=== PATIENT | female | born 2000 | race Asian ===

== ENCOUNTER 2021-12-06 01:29 | Emergency (ER) | payer BC, MEDICAID ==
[~2021-12-06] VITALS: Ht 172.7 cm; Wt 69.0 kg
[2021-12-06] MEDS ORDERED: DOXY100T2 MT (03:37)
[2021-12-06] MEDS ORDERED: TOPUD MT (03:37)
[2021-12-06 03:57] VITALS: BP 114/65
== END 2021-12-06 03:59 | disposition home or self-care (01) ==
LOC: ER 01:29
DX: J18.9 Pneumonia, unspecified organism (principal)
CPT/HCPCS: 71045; 81025; 93005; 99283